=== PATIENT | male | born 1985 | race Caucasian/White ===

== ENCOUNTER 2018-08-10 05:15 | Emergency (ER) | payer SELFPAY ==
[~2018-08-10] VITALS: Ht 172.7 cm; Wt 108.9 kg
[2018-08-10 05:20] VITALS: BP 135/79
--- NOTE | 2018-08-10 05:31 | NUR ---
Patient being evaluated by physician at bedside.
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
[2018-08-10] MEDS ORDERED: BACITRACIN OINT 500 UNITS/GM PKT TP ONE (05:35)
--- NOTE | 2018-08-10 05:38 | NUR ---
Spoke with Ana at [facility] who stated that since pt was not going to be admitted that Pt would need to follow at the station or they could come to his home. Options discussed with Pt and he opted to follow up at [facility] station.
[2018-08-10] MEDS ORDERED: IBUPROFEN 800 MG TAB PO ONE (05:45)
[2018-08-10] MEDS ORDERED: LIDOCAINE 1% 500 MG/50 ML VIAL INJ SCH (05:55)
[2018-08-10] MEDS ORDERED: LIDOCAINE MPF 1% 5mL VIAL ONE (06:07)
== END 2018-08-10 06:18 | disposition home or self-care (01) ==
LOC: MED 05:15
DX: S61.412A Laceration without foreign body of left hand, initial encounter (principal); Y04.2XXA Assault by strike against or bumped into by another person, initial encounter; Y93.89 Activity, other specified; Y92.89 Other specified places as the place of occurrence of the external cause; Y99.8 Other external cause status
CPT/HCPCS: 12001; 90471; 90715; 99283; J2001